=== PATIENT | male | born 1985 | race Caucasian/White ===

== ENCOUNTER 2023-01-17 20:37 | Emergency (ER) | payer OTHER ==
[~2023-01-17] VITALS: Ht 175.3 cm; Wt 63.5 kg
--- NOTE | 2023-01-17 20:40 | NUR ---
Patient to ER bed H1 to gown for evaluation. Side rails up.
--- NOTE | 2023-01-17 20:42 | NUR ---
Pt brought by PD, A&Ox3, pt presents to ER for medical clearance due to high alcohol level, pt denies any injuries, denies any symptoms or medical history, skin pink and warm, cap refill<3, VSS.
--- NOTE | 2023-01-17 20:45 | NUR ---
Dr Hooks evaluating patient at bedside
[2023-01-17 20:49] VITALS: BP_SYST 150
[2023-01-17 20:55] VITALS: BP_SYST 150
--- NOTE | 2023-01-17 20:56 | NUR ---
Patient and PD given written and verbal discharge instructions and verbalizes understanding. ER MD discussed with patient and PD the results and treatment provided. Patient in stable condition. ID arm band removed. No Rx given. Patient educated on pain management and to follow up with PMD. Pain Scale 0/10. Opportunity for questions provided and answered. Medication side effect fact sheet provided.
== END 2023-01-17 20:55 ==
LOC: SED 20:37
DX: Z02.89 Encounter for other administrative examinations (principal); Z65.3 Problems related to other legal circumstances; Z79.899 Other long term (current) drug therapy
CPT/HCPCS: 99283